=== PATIENT | female | born 1955 | race Caucasian/White ===

== ENCOUNTER 2019-10-19 13:08 | Emergency (ER) | payer OTHER, MEDICARE, SELFPAY ==
--- NOTE | ~2019-10-19 | XR_ITS ---
EXAMINATION: XR ankle LT min 3V DATE: 10/19/2019 13:31 INDICATION: Medial left ankle pain post injury TECHNIQUE: Anteroposterior, oblique, mortise, and lateral views of the left ankle were obtained. COMPARISON: 08/29/2017 FINDINGS: Alignment is normal. No fracture. Joint spaces are well maintained. Small plantar calcaneal spur. Mi ld enthesopathic ossification at the distal Achilles tendon and proximal plantar aponeurosis with add itional small amount of heterotopic ossification along the medial collateral ligament complex at the first metatarsophalangeal joint. Possible ankle joint effusion. The soft tissues are otherwise unrema rkable. IMPRESSION: 1. Possible left ankle joint effusion. No acute osseous abnormality. Reviewed, dictated and finalized at location A.
[2019-10-19 13:24] VITALS: BP 194/89; PULSE 85; RESP 20; TEMP 36.3; O2SAT 99
--- NOTE | 2019-10-19 13:30 | ED.LOWEXIN ---
HPI - Extremity Injury (Lower) General Chief Complaint: Extremity Injury, Lower Stated Complaint: L/ankle pain Time Seen by Provider: 10/19/19 13:20 Source: patient and RN notes reviewed History of Present Illness HPI Narrative: Patient is a 64-year-old female who presents the urgent care with complaints of left ankle pain and swelling. Patient states that yesterday she tripped in a hole, rolling her left ankle. Patient states that she has been wrapping it with an [place] wrap and wearing a walking shoe. Patient has also taken ibuprofen for the pain and use crutches. No other acute complaints or injuries from the fall. No acute distress noted. Patient read the plan of care. Related Data Home Medications Medication Instructions Recorded Confirmed aspirin 81 mg tablet,delayed 81 mg PO DAILY 03/20/19 10/19/19 release calcium carbonate 500 mg calcium 500 mg PO BID 03/20/19 10/19/19 (1,250 mg) tablet multivitamin 1 tablet PO DAILY 03/20/19 10/19/19 simvastatin 10 mg tablet 10 mg PO DAILY 03/20/19 10/19/19 valsartan 80 mg tablet 40 mg PO DAILY tablet 04/18/19 10/19/19 insulin lispro [Humalog U-100 10/19/19 10/19/19 Insulin] Allergies Allergy/AdvReac Type Severity Reaction Status Date / Time Sulfa (Sulfonamide Allergy Severe Swelling Verified 09/25/19 09:44 Antibiotics) of Lip/Tongue/Throat sulfanilamide Allergy Severe Swelling Verified 09/25/19 09:44 of Lip/Tongue/Throat ciprofloxacin Allergy Intermediate Hives Verified 09/25/19 09:44 doxycycline Allergy Intermediate hives Verified 09/25/19 09:44 Penicillins Allergy Intermediate Hives Verified 09/25/19 09:44 Review of Systems Review of Systems: Narrative: CONSTITUTIONAL: Denies fever, chills, or sweats. EYES: Denies visual changes, redness, or discharge. ENT: Denies rhinorrhea, congestion, sore throat, or otalgia. CARDIOVASCULAR: Denies chest pain, palpitations, or edema. RESPIRATORY: Denies cough or dyspnea. GASTROINTESTINAL: Denies abdominal pain, nausea, vomiting, or diarrhea. GENITOURINARY: Denies dysuria or hematuria. SKIN: Denies rash or itching. MUSCULOSKELETAL: Reports of left ankle pain and swelling NEUROLOGIC: Denies headache, numbness, or weakness. All other systems reviewed are negative, except as documented in HPI. 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 There is no relevant family history pertinent to the patient complaint. Exam Narrative: Exam Narrative: GENERAL: This is a well-nourished, well-developed patient, in no apparent distress. HEAD: normocephalic, atraumatic. EYES: PERRL. Sclera clear/white. Vision is grossly intact. EARS: External ears normal NOSE: External nose normal with no obvious nasal discharge, nares without redness, no rhinorrhea. THROAT: Mucous membranes moist NECK: Neck supple SKIN: warm, intact with no suspicious lesions or rash, good texture and turgor. NEURO: awake, alert, and oriented to person, place and time. There were no obvious focal neurologic abnormalities. EXTREMITIES: No obvious deformity or fracture noted to the left lower extremity. Very mild medial malleolus edema without erythema or ecchymosis. Range of motion within normal limits, exacerbates pain. Reports of increased pain with weightbearing. Positive strong left pedal pulse with capillary refill less than 2 seconds. Course Vital Signs Vital signs: Vital Signs Temperature 97.3 F L 10/19/19 13:24 Pulse Rate 85 10/19/19 13:24 Respiratory Rate 20 10/19/19 13:24 Blood Pressure
== END 2019-10-19 14:03 | disposition home or self-care (01) ==
PROVIDERS: Emergency Provider Nurse Practitioner Family; PCP Internal Medicine
DX: S93.402A Sprain of unspecified ligament of left ankle, initial encounter (principal); S96.912A Strain of unspecified muscle and tendon at ankle and foot level, left foot, initial encounter; X50.9XXA Other and unspecified overexertion or strenuous movements or postures, initial encounter; Z79.82 Long term (current) use of aspirin; E78.00 Pure hypercholesterolemia, unspecified; I10 Essential (primary) hypertension; E11.9 Type 2 diabetes mellitus without complications; Z96.41 Presence of insulin pump (external) (internal); Z79.4 Long term (current) use of insulin
CPT/HCPCS: 73610; 99213; G0463

== ENCOUNTER 2020-12-03 11:09 | Outpatient (CLI) | payer OTHER, SELFPAY ==
--- NOTE | ~2020-12-03 | XR_ITS ---
EXAMINATION: XR hand LT min 3V DATE: 12/03/2020 11:22 INDICATION: Left hand dog bite and pain. TECHNIQUE: 3 views of left hand were obtained. COMPARISON: None. FINDINGS: Bone alignment is normal. No fracture. There is diffuse osteopenia. There is mild osteoarth ritis of second-fourth distal interphalangeal joints and first interphalangeal joint. There are small calcifications dorsal to the carpus on the lateral view that may be loose bodies. No radiopaque fore ign body. IMPRESSION: 1. Mild polyarticular osteoarthritis. Reviewed, dictated and finalized at location A.
== END 2020-12-03 11:10 | disposition home or self-care (01) ==
LOC: ANHIMG 11:11
PROVIDERS: PCP Internal Medicine; Visit Provider Physician Assistant
DX: S61.459A Open bite of unspecified hand, initial encounter (principal); X58.XXXA Exposure to other specified factors, initial encounter; M19.042 Primary osteoarthritis, left hand
CPT/HCPCS: 73130

== ENCOUNTER → 2021-06-16 15:31 | Outpatient (CLI) | payer OTHER, SELFPAY ==
--- NOTE | ~2021-06-16 | MM_ITS ---
EXAMINATION: MM screening [facility] BI w yoni HISTORY: Screening TECHNIQUE: Craniocaudal and mediolateral oblique 3-D tomosynthesis images were obtained and synthetic 2-D images were generated. CAD analysis was submitted and interpreted. COMPARISON: 11/23/2016 BREAST PARENCHYMAL COMPOSITION: There are scattered areas of fibroglandular density. FINDINGS: Focal asymmetry in the subareolar location of the left breast is unchanged from prior exami nation. There is no evidence of suspicious mass, calcification, or architectural distortion to sugges t malignancy in either breast. There has been no suspicious interval change. IMPRESSION: 1. No mammographic evidence of malignancy. 2. Recommend routine screening mammography in one year. BI-RADS Category 2: Benign finding(s). Reviewed, dictated and finalized at location A.
== END ==
PROVIDERS: PCP Internal Medicine; Visit Provider Internal Medicine
DX: Z12.31 Encounter for screening mammogram for malignant neoplasm of breast (principal)
CPT/HCPCS: 77063; 77067

== ENCOUNTER 2023-08-24 20:56 | Emergency (ER) | payer OTHER, SELFPAY ==
--- NOTE | ~2023-08-24 | XR_ITS ---
XR chest 2V Ordering provider: Mihir Vieira DO History: 68 years Female with . chest pain LEFT SIDE . Comparison: February 13, 2014 FINDINGS: MEDIASTINUM: The cardiac silhouette is not enlarged. LUNGS: No infiltrates, effusions or pneumothorax. OTHER: No free air under the diaphragm. IMPRESSION: No acute cardiopulmonary pathology. Reviewed, dictated and finalized at location A.
--- NOTE | 2023-08-24 20:58 | ECG_ITS ---
Test Date: 2023-08-24 21:03:12 Measurements Intervals [place] Rate: 96 P: 51 [place]: 165 QRS: 30 QRSD: 74 T: 54 QT: 329 QTc: 418 Interpretive Statements SINUS RHYTHM BASELINE ARTIFACT- I, II, AVR, AVL, AVF, V1-V6 NORMAL ECG No previous ECG available for comparison Electronically Signed On 08-25-2023 06:12:16 CDT by Magno Sofia D.O.
[2023-08-24 21:01] VITALS: BP 181/98; PULSE 95; RESP 18; TEMP 36.5; O2SAT 98
[2023-08-24 21:06] VITALS: O2SAT 98
[2023-08-24] MEDS: ASPIRIN 81 MG CHEWABLE TABLET 324 MG PO (21:13)
[2023-08-24 21:15] LABS: Basophils Percent Auto 0.7 % (0.2-1.2); Eosinophils Absolute Auto 0.1 K/mm3 (0-0.3); Eosinophils Percent Auto 1.4 % (0-4.4); Hematocrit 39.4 % (37.0-47.0); Hemoglobin 13.5 g/dL (12.0-15.0); Immature Granulocyte Absolute 0.01 K/mm3 (0.00-0.031); Immature Granulocyte Percent A 0.2 % (0-0.5); Lymphocytes Absolute Auto 1.37 K/mm3 (0.9-3.2); Lymphocytes Percent Auto 24.3 % (18.3-44.2); Mean Corpuscular HGB Conc 34.3 g/dl (32-36); Mean Corpuscular Hemoglobin 30.5 pg (26-34); Mean Corpuscular Volume 89.1 fl (80-100); Mean Platelet Volume 11.5 fl (7.4-10.4); Monocytes Absolute Auto 0.5 K/mm3 (0.1-0.6); Neutrophils Absolute Auto 3.7 K/mm3 (1.3-6.7); Neutrophils Percent Auto 65.4 % (45.5-73.1); Platelet Count Result 228 k/mm3 (150-375); Red Blood Count 4.42 M/mm3 (4.2-5.4); Red Cell Distribution Width 12.4 % (11.5-14.5); White Blood Count 5.6 K/mm3 (4.5-10.0)
[2023-08-24 21:25] LABS: Alanine Aminotransferase 14 U/L (6-35); Albumin Level 4.4 g/dL (3.5-5.1); Alkaline Phosphatase 130 U/L (38-126); Anion Gap 7 mmol/L (4-12); Aspartate Amino Transferase 22 U/L (14-36); Bilirubin,Total 0.6 mg/dL (0.2-1.3); Blood Urea Nitrogen 15 mg/dL (7-17); Calcium 9.4 mg/dL (8.4-10.2); Carbon Dioxide 25 mmol/L (22-30); Chloride 107 mmol/L (98-107); Estimated CRCL calculation 56 ml/min; Estimated Glomerular Filt Rate > 60; Glucose 277 mg/dL (65-110); Lipase 48 U/L (23-300); Sodium 139 mmol/L (137-145)
[2023-08-24 21:26] LABS: INR 0.9; Prothrombin Time 13.1 Seconds (11.1-14.7)
[2023-08-24 21:36] LABS: Troponin I < 0.012 ng/mL (0.000-0.034)
[2023-08-24 22:35] LABS: D Dimer 0.55 ug/mL (<0.48)
--- NOTE | 2023-08-24 23:21 | ED.CHESTPAIN ---
HPI - Chest Pain General Chief Complaint: Chest Pain Stated Complaint: chest pain Time Seen by Provider: 08/24/23 22:03 Source: patient and family Limitations: no limitations History of Present Illness HPI narrative: Patient is a 68-year-old female presents to the emergency department complaining of chest pressure and difficulty breathing. Patient is started around early afternoon, lasted approximately 40 minutes, notes that she was outside of some heat exhaustion and she has had symptoms like this in the past approximately 1 year ago in August when she was at [employer] and did have stress testing at that time, notes that it went away after 40 minutes and has not returned, describes the episode as chest pressure in the middle left side of her chest, nausea, difficulty breathing, diaphoresis. patient denies any recent injuries, recent illness, cough, fever, abdominal pain, vomiting, diarrhea, melena, hematochezia, history of blood clots, unilateral lower extremity swelling. Patient denies being a smoker. Patient admits to history of high cholesterol, diabetes, hypertension, family history of heart disease at a young age. Patient is a chest pressure was nonradiating, did notice anything that was making it better or worse, did not try anything for. Related Data Home Medications Medication Instructions Recorded Confirmed aspirin 81 mg tablet,delayed 81 mg PO DAILY 03/20/19 05/31/23 release multivitamin (Multiple Vitamins 1 tablet PO DAILY 03/20/19 05/31/23 tablet) calcium carbonate 600 mg-vitamin tablet PO BID 03/23/21 05/31/23 D3 10 mcg (400 unit) chewable tablet (Calcium 600 with Vitamin D3) Allergies Allergy/AdvReac Type Severity Reaction Status Date / Time Sulfa (Sulfonamide Allergy Severe Swelling Verified 05/31/23 09:08 Antibiotics) of Lip/Tongue/Throat sulfanilamide Allergy Severe Swelling Verified 05/31/23 09:08 of Lip/Tongue/Throat ciprofloxacin Allergy Intermediate Hives Verified 05/31/23 09:08 doxycycline Allergy Intermediate hives Verified 05/31/23 09:08 Review of Systems Review of Systems: A 10 system review of systems was completed on the patient and is negative except for what is stated in the HPI. Nursing and ancillary documentation was reviewed. [facility] Past Medical History Medical History Achilles tendinitis of left lower extremity Acute bronchitis due to other specified organisms Animal bite of hand Bilateral impacted cerumen Cardiac arrest Cataract (lens) fragments in eye following cataract surgery, bilateral DKA (diabetic ketoacidosis) Dysuria Hyperlipidemia, unspecified Hypertension Long-term insulin use Osteopenia Otalgia of left ear Overweight (BMI 25.0-29.9) Pain of left upper extremity Postmenopausal Pure hypercholesterolemia Type 1 diabetes mellitus with hyperglycemia Surgical History Surgical History H/O section x4 Family History Family History Mother Depression Hypertension Cerebrovascular accident Family history of hearing loss Acute myocardial infarction Father Hypertension Family history of heart disease in male family member before age 55 Patient's father is Sibling Family history of elevated blood lipids Grandparent Family history of heart disease in male family member before age 55 Family history of malignant neoplasm of breast Social History Social History Smoking status: Never smoker Second hand tobacco smoke exposure: No Alcohol intake: current Alcohol use details: once a month Substance use: never Do You Feel Safe in your Home?: Yes Lack of Transportation: No Lack of Food: Never True Current Housing: I Have Housing Concerned [facility]
[2023-08-25 00:17] VITALS: BP 151/83; PULSE 68; RESP 15; O2SAT 96
[2023-08-25 00:17] LABS: Troponin I < 0.012 ng/mL (0.000-0.034)
[2023-08-25 01:26] VITALS: BP 166/78; PULSE 67; RESP 15; O2SAT 98
== END 2023-08-25 01:28 | disposition home or self-care (01) ==
PROVIDERS: Emergency Provider Student in an Organized Health Care Education/Training Program; PCP Internal Medicine
DX: R07.89 Other chest pain (principal); I10 Essential (primary) hypertension; E10.9 Type 1 diabetes mellitus without complications; E78.00 Pure hypercholesterolemia, unspecified; M85.80 Other specified disorders of bone density and structure, unspecified site; H59.023 Cataract (lens) fragments in eye following cataract surgery, bilateral; Z79.82 Long term (current) use of aspirin; Z79.4 Long term (current) use of insulin
CPT/HCPCS: 36415; 71046; 80053; 83690; 84484; 85025; 85380; 85610; 85730; 93005; 99284; A9270